=== PATIENT | female | born 1935 | race Caucasian/White ===

== ENCOUNTER → 2016-12-19 | Outpatient (CLI) | payer OTHER ==
[~2016-12-19] MED LIST: ADVIN50/60 INH; ADVIN50050 INH; ASPEC81 PO; ASPI81TA28 PO; LEVO100T7 PO; LEVO100T84 PO; METO50TA7 PO; SIMV40TA2 PO; TAMO20TA9 PO; VNTHFA/IN INH
[2016-12-19 09:26] LABS: BLOOD UREA NITROGEN 15 mg/dl (7-18); BUN/CREATININE RATIO 18.2 (10-20); CARBON DIOXIDE 25 mmol/L (21-32); CHLORIDE 107 mmol/L (98-107); CREATININE 0.84 mg/dl (0.60-1.20); GLUCOSE 86 mg/dl (70-99); POTASSIUM 4.1 mmol/L (3.5-5.1); SODIUM 140 mmol/L (136-145)
[2016-12-19 09:32] LABS: CALCIUM 8.2 mg/dl (8.5-10.1)
== END | disposition home or self-care (01) ==
LOC: C.LABVPSUW 09:01
PROVIDERS: ATTEND Internal Medicine Critical Care Medicine
DX: E03.9 Hypothyroidism, unspecified (principal); I10 Essential (primary) hypertension

== ENCOUNTER → 2017-02-16 | Outpatient (CLI) | payer OTHER ==
[~2017-02-16] MED LIST changes: +TAMO20TA47 PO; -TAMO20TA9 PO
[2017-02-16 11:14] LABS: BLOOD UREA NITROGEN 26 mg/dl (7-18); BUN/CREATININE RATIO 21.8 (10-20); CALCIUM 8.9 mg/dl (8.5-10.1); CARBON DIOXIDE 28 mmol/L (21-32); CHLORIDE 101 mmol/L (98-107); GLUCOSE 91 mg/dl (70-99); SODIUM 135 mmol/L (136-145)
== END | disposition home or self-care (01) ==
LOC: C.LABVPSUW 10:36
PROVIDERS: ATTEND Internal Medicine Critical Care Medicine
DX: E87.6 Hypokalemia (principal)

== ENCOUNTER 2017-02-17 13:22 | Emergency (ER) | payer OTHER ==
[~2017-02-17] VITALS: Ht 162.6 cm; Wt 70.9 kg
[~2017-02-17 13:22] MED LIST changes: -ADVIN50/60 INH; -ASPI81TA28 PO; -LEVO100T7 PO; -VNTHFA/IN INH
[2017-02-17 13:31] VITALS: TEMP 36.7; Ht 162.6 cm; Wt 70.9 kg
[2017-02-17 13:37] VITALS: O2SAT 97
[2017-02-17 14:03] LABS: BASO % 1.1 %; BASO ABS # 0.06 K/uL (0-0.2); COMPLETE YES; EOS % 6.6 %; HEMATOCRIT 39.9 % (37-47); IG% 0.2 %; LYMPH % 23.9 %; LYMPH ABS # 1.34 K/uL (1.2-3.4); MEAN CELL VOLUME 84.7 fL (80-100); MEAN CORPUSCULAR HEMOGLOBIN 29.1 pg (25-34); MEAN CORPUSCULAR HGB CONC 34.3 g/dl (32-36); MEAN PLATELET VOLUME 10.4 fL (7.4-10.4); MONO % 12.3 %; NEUT % 55.9 %; PLATELET COUNT 164 K/uL (130-400); RED BLOOD COUNT 4.71 M/uL (4.2-5.4); WHITE BLOOD COUNT 5.61 K/uL (4.8-10.8)
--- NOTE | 2017-02-17 14:12 | EMERGENCY ROOM VISIT NOTE ---
History First contact with patient: 14:08 Chief Complaint: SYNCOPE (NEAR SYNCOPE) Stated Complaint: SYNCOPE (SINGLE EPISODE) Nursing Triage Summary: patient arrived by ambulance bls after a near syncopal episode while walking at the [facility], per ems patient became pale, diaphoretic and felt dizzy. Patient was assisted to sit on the ground. Patient started new blood pressure medication a couple weeks ago and since that time states this has happened twice. Patient has no complaints on time of arrival. Denies chest pain, shortness of breath also denies cardiac history. History of Present Illness The patient is a 81 year old female who presents to the Emergency Room with complaints of syncope Walking around [facility] when she felt acutely fatigued, and needed to sit down in the shade. Granddaughter claims she was swaying while sitting. When patient went to stand, she states her knees buckled, and she went to sit down on her behind. Unsure if she had a short duration of LOC but denies head trauma on fall. Denies feeling dizzy or lightheaded, SOB, CP, or palpitations. Does state significant flushing and diaphoresis just being outdoors in the sun, despite sun protection. Similar, but milder episode the week before while outdoors. Patient beleives herself to have adequate PO fluid intake, but admits to feeling kind of "woozy" since starting her new diuretic - ?HCTz. Today drank 1 glass of metamusil, 1 cup of coffee and a glass of water before giong outdoors. No recent URTI, no abdominal pain, n/v diarrhea No headaches, no vision changes. No UTI sx. Scheduled for outpatient echo tomorrow Review of Systems See HPI for pertinent positives and negatives. A total of ten systems were reviewed and were otherwise negative. Past Medical/Surgical History Medical Problems: (1) Breast cancer Social History Smoking Status: Never Smoker Smokeless Tobacco Use: No Alcohol Use: occasionally Drug Use: none Housing Status: assisted living ([facility]) Occupation Status: retired Current/Historical Medications Scheduled Albuterol Hfa (Ventolin Hfa), 2 PUFFS INH Q4H Aspirin (Aspirin Ec), 81 MG PO DAILY Fluticasone Prop/Salmeterol (Advair Diskus 500/50 60 Dose), 1 PUFF INH BID Levothyroxine Sodium (Levothyroxine Sodium), 100 MCG PO DAILY Metoprolol Succ (Toprol Xl) (Toprol-Xl), 50 MG PO DAILY Simvastatin (Zocor), 40 MG PO QPM Physical Exam Vital Signs Date Time Temp Pulse Resp B/P (MAP) Pulse Ox O2 Delivery O2 Flow Rate FiO2 02/17/17 16:47 59 20 134/73 99 02/17/17 16:47 59 20 134/73 99 Room Air 02/17/17 15:09 62 20 168/89 98 Room Air 02/17/17 14:06 64 02/17/17 13:37 68 100/81 67 108/66 74 104/69 02/17/17 13:37 97 Room Air 02/17/17 13:31 36.7 70 20 100/81 96 Room Air Physical Exam GENERAL: Alert, well appearing, thin, sitting in bed, no acute distress, non- toxic HEAD: NC/AT. No sinus tenderness. EYES: PERRL, EOMI, normal conjunctiva OROPHARYNX: no exudate, no erythema, lips, buccal mucosa, and tongue normal and mucous membranes are dry NECK: Supple, no nuchal rigidity, no adenopathy, non-tender LUNGS: Clear to auscultation. Normal chest wall mechanics, good air entry. No crepitations, crackles, or wheezes HEART: S1 and S2 normal, significant systolic murmur in aortic region ABDOMEN: abdomen soft, non-tender, normo-active bowel sounds, no masses, no rebound or guarding. BACK: Back is symmetrical on inspection, no deformities, no midline tenderness, no CVA tenderness. SKIN: Warm, pink, dry. No erythema, rashes, or bruising. EXTREMITIES: Grossly normal. No pitting edema. Calves non tender. Strength 5/5 bilaterally. NEURO: Alert, Ox3. No focal deficits. Normal sensorium, cranial nerves II-XII grossly intact, normal speech. PSYCH: Mood and affect appropriate. Medical Decision & Procedures ER Provider Diagnostic Interpretation: CHEST ONE VIEW PORTABLE CLINICAL HISTORY: near syncope COMPARISON STUDY: 11/24/2005 FINDINGS: The cardiac and mediastinal contours are normal. There is no evidence of focal pulmonary consolidation. There is no evidence of failure. No pleural effusions are visualized.[ There are postsurgical changes within the right shoulder. IMPRESSION: No active disease in the chest. Laboratory Results 02/17/17 13:45 Red Blood Count 4.71, Mean Corpuscular Volume 84.7, Mean Corpuscular Hemoglobin 29.1, Mean Corpuscular Hemoglobin Concent 34.3, Mean Platelet Volume 10.4, Neutrophils (%) (Auto) 55.9, Lymphocytes (%) (Auto) 23.9, Monocytes (%) (Auto) 12.3, Eosinophils (%) (Auto) 6.6, Basophils (%) (Auto) 1.1, Neutrophils # (Auto ) 3.14, Lymphocytes # (Auto) 1.34, Monocytes # (Auto) 0.69, Eosinophils # (Auto ) 0.37, Basophils # (Auto) 0.06 02/17/17 13:45 Test 02/17/17 13:45 02/17/17 14:00 02/17/17 14:28 02/17/17 15:10 White Blood Count 5.61 K/uL (4.8-10.8) Red Blood Count 4.71 M/uL (4.2-5.4) Hemoglobin 13.7 g/dL (12.0-16.0) Hematocrit 39.9 % (37-47) Mean Corpuscular Volume 84.7 fL (80-100) Mean Corpuscular Hemoglobin 29.1 pg (25-34) Mean Corpuscular Hemoglobin Concent 34.3 g/dl (32-36) Platelet Count 164 K/uL (130-400) Mean Platelet Volume 10.4 fL (7.4-10.4) Neutrophils (%) (Auto) 55.9 % Lymphocytes (%) (Auto) 23.9 % Monocytes (%) (Auto) 12.3 % Eosinophils (%) (Auto) 6.6 % Basophils (%) (Auto) 1.1 % Neutrophils # (Auto) 3.14 K/uL (1.4-6.5) Lymphocytes # (Auto) 1.34 K/uL (1.2-3.4) Monocytes # (Auto) 0.69 K/uL (0.11-0.59) Eosinophils # (Auto) 0.37 K/uL (0-0.5) Basophils # (Auto) 0.06 K/uL (0-0.2) RDW Standard Deviation 42.1 fL (36.4-46.3) RDW Coefficient of Variation 13.7 % (11.5-14.5) Immature Granulocyte % (Auto) 0.2 % Immature Granulocyte # (Auto) 0.01 K/uL (0.00-0.02) Anion Gap 9.0 mmol/L (3-11) Est Creatinine Clear Calc Drug Dose 37.4 ml/min Estimated GFR () 53.8 Estimated GFR (Non- 46.4 BUN/Creatinine Ratio 20.7 (10-20) Calcium Level 9.0 mg/dl (8.5-10.1) Total Bilirubin 0.7 mg/dl (0.2-1) Aspartate Amino Transf (AST/SGOT) 24 U/L (15-37) Alanine Aminotransferase (ALT/SGPT) 22 U/L (12-78) Alkaline Phosphatase 67 U/L (45-117) Total Creatine Kinase 83 U/L (26-192) Creatine Kinase MB 1.1 ng/ml (0.5-3.6) Creatine Kinase MB Ratio 1.3 (0-3.0) Total Protein 7.0 gm/dl (6.4-8.2) Albumin 3.5 gm/dl (3.4-5.0) Globulin 3.5 gm/dl (2.5-4.0) Albumin/Globulin Ratio 1.0 (0.9-2) Thyroid Stimulating Hormone (TSH) 1.170 uIu/ml (0.300-4.500) Bedside Troponin I < 0.030 ng/ml (0-0.045) Bedside Glucose 101 mg/dl (70-90) Urine Color YELLOW Urine Appearance CLEAR (CLEAR) Urine pH 7.5 (4.5-7.5) Urine Specific [place] 1.010 (1.000-1.030) Urine Protein NEG (NEG) Urine Glucose (UA) NEG (NEG) Urine Ketones NEG (NEG) Urine Occult Blood TRACE (NEG) Urine Nitrite NEG (NEG) Urine Bilirubin NEG (NEG) Urine Urobilinogen NEG (NEG) Urine Leukocyte Esterase TRACE (NEG) Urine WBC (Auto) 1-5 /hpf (0-5) Urine RBC (Auto) 0-4 /hpf (0-4) Urine Hyaline Casts (Auto) 1-5 /lpf (0-5) Urine Epithelial Cells (Auto) 0-5 /lpf (0-5) Urine Bacteria (Auto) NEG (NEG) Medications Administered Medications (Trade) Dose Ordered Sig/Vanessa Route Start Time Stop Time Status Last Admin Dose Admin Sodium Chloride 500 ml @ 500 mls/hr Q1H IV 02/17/17 14:45 02/17/17 17:04 DC 02/17/17 15:45 500 MLS/HR ECG Indication: syncope Rate (beats per minute): 61 Rhythm: normal sinus Findings: LBBB Change: Normal sinus rhythm Left bundle branch block Abnormal ECG When compared with ECG of 04-AUG-2007 12:05, Left bundle branch block is now Present ED Course 1420 The patient was evaluated in room B5. A complete history and physical exam was performed. Labs and diagnostics were ordered 1445 IVF bolus ordered 1647: Orthostatic positive. 1530 Reassessed. IVF running, half done. Patient well. Medical Decision Prior records/ancillary studies reviewed. Triage Nursing notes reviewed. Additional history obtained from patient, daughter, granddaughter. The patient's history was concerning for syncope. Differential diagnosis: Etiologies such as vasovagal event, infection, hypoglycemia, electrolyte abnormalities, cardiac sources, intracerebral event, toxicologic, neurologic, as well as others were entertained. Physical examination: Significant only for aortic systolic murmur ER treatment provided: IV hydration with normal saline On reassessment the patient felt better. Diagnostics interpretation by me: ECG: NSR The labs revealed normal CBC, hyponatremia, elevated BUN:Cr ratio, negative trop , normal TSH, glucose 120 Imaging studies: No active disease in the chest Consultation: This episode appears to be consistent with dehydration exacerbated by the initiation of new diuretic and underlying valvular dysfunction. By the evaluation outlined above emergent etiologies such as infection, hypoglycemia, electrolyte abnormalities, cardiac sources, intracerebral event, toxicologic, neurologic,as well as others were deemed relatively unlikely. The patient informed about the findings as listed above. All questions were answered and family pleased with the treatment. Return instructions were outlined and the patient was discharged in stable condition. Outpatient prescription management: Hold new medication until further discussion with PCP. Attend appointment for echo tomorrow as previously scheduled. Referral: The patient was referred back to their primary care physician for follow-up in 2 to 3 days for a recheck of the current condition. Impression Primary Impression: Syncope due to orthostatic hypotension Additional Impression: Murmur, cardiac Departure Information Dispostion Home / Self-Care Condition GOOD Referrals [facility] (PCP) Patient Instructions My [facility] Resident Tracking Resident Involvement: Resident Care Provided Care Provided: Adult ED Problem Qualifiers
[2017-02-17 14:14] LABS: BUN/CREATININE RATIO 20.7 (10-20); CREATININE 1.1 mg/dl (0.60-1.20); POTASSIUM 4.1 mmol/L (3.5-5.1)
--- NOTE | 2017-02-17 14:15 | DIAGNOSTIC IMAGING REPORT ---
CHEST ONE VIEW PORTABLE CLINICAL HISTORY: near syncope COMPARISON STUDY: 11/24/2005 FINDINGS: The cardiac and mediastinal contours are normal. There is no evidence of focal pulmonary consolidation. There is no evidence of failure. No pleural effusions are visualized.[ There are postsurgical changes within the right shoulder. IMPRESSION: No active disease in the chest. Electronically signed by: Long Whitaker M.D. 02/17/2017 2:13 PM Dictated Date/Time: 02/17/2017 2:13 PM
[2017-02-17 14:25] LABS: CKMB/CK RATIO 1.3 (0-3.0); THYROID STIMULATING HORMONE 1.17 uIu/ml (0.300-4.500)
[2017-02-17] MEDS ORDERED: ADVIN50/60 INH (14:27)
[2017-02-17] MEDS ORDERED: ASPI81TA28 PO (14:27)
[2017-02-17] MEDS ORDERED: VNTHFA/IN INH (14:27)
[2017-02-17] MEDS ORDERED: LEVO100T7 PO (14:27)
[2017-02-17] MEDS: SODIUM CHLORIDE 0.9% 500ML 500 ML IV SCH ×2 (15:07→15:45)
[2017-02-17 15:36] LABS: URINE APPEARANCE CLEAR (CLEAR); URINE BILIRUBIN NEG (NEG); URINE COLOR YELLOW; URINE EPITHELIAL CELL AUTO 0-5 /lpf (0-5); URINE NITRITE NEG (NEG); URINE PH 7.5 (4.5-7.5); UROBILINOGEN NEG (NEG); ZZUR CULT IF INDIC CLEAN CATCH NO
[2017-02-17 15:38] LABS: MANUAL MICROSCOPIC REQUIRED? NO; REVIEW REQ? NO
--- NOTE | 2017-02-17 15:55 | EMERGENCY ROOM VISIT NOTE ---
History Report prepared by Mc: Jose M Montoya Under the Supervision of: Dr. Rodrick Stack M.D. First contact with patient: 14:08 Chief Complaint: SYNCOPE (NEAR SYNCOPE) Stated Complaint: SYNCOPE (SINGLE EPISODE) Nursing Triage Summary: patient arrived by ambulance bls after a near syncopal episode while walking at the [facility], per ems patient became pale, diaphoretic and felt dizzy. Patient was assisted to sit on the ground. Patient started new blood pressure medication a couple weeks ago and since that time states this has happened twice. Patient has no complaints on time of arrival. Denies chest pain, shortness of breath also denies cardiac history. History of Present Illness The patient is a 81 year old female who presents to the Emergency Room with complaints of a near-syncopal episode. Patient arrived by ambulance bls after a near syncopal episode while walking at the [facility], per ems patient became pale, diaphoretic and felt dizzy. Patient was assisted to sit on the ground. Patient started new blood pressure medication a couple weeks ago and since that time states this has happened twice. Patient has no complaints on time of arrival. Denies chest pain, shortness of breath also denies cardiac history. Source of History: patient Onset: Shortly prior to arrival Quality: other (near-syncope) Timing: other (episode) Associated Symptoms: + diaphoresis, No chest pain, No SOB Note: Additional symptoms: Pale appearance, dizziness. Review of Systems See HPI for pertinent positives & negatives. A total of 10 systems reviewed and were otherwise negative. Past Medical & Surgical Medical Problems: (1) Breast cancer Family History No pertinent family history stated. Social History Smoking Status: Never Smoker Smokeless Tobacco Use: No Alcohol Use: occasionally Drug Use: none Housing Status: assisted living ([facility]) Occupation Status: retired Current/Historical Medications Scheduled Albuterol Hfa (Ventolin Hfa), 2 PUFFS INH Q4H Aspirin (Aspirin Ec), 81 MG PO DAILY Fluticasone Prop/Salmeterol (Advair Diskus 500/50 60 Dose), 1 PUFF INH BID Levothyroxine Sodium (Levothyroxine Sodium), 100 MCG PO DAILY Metoprolol Succ (Toprol Xl) (Toprol-Xl), 50 MG PO DAILY Simvastatin (Zocor), 40 MG PO QPM Allergies Coded Allergies: Morphine (Unverified Allergy, Mild, RASH, 02/17/17) Clavulanic Acid (Unverified Allergy, Unknown, 02/17/17) Penicillins (Unverified Allergy, Unknown, 02/17/17) Sulfa Antibiotics (Verified Allergy, Unknown, ., 02/17/17) Uncoded Allergies: BETALACTAMASEIN (Allergy, Unknown, 08/17/09) Physical Exam Vital Signs Date Time Temp Pulse Resp B/P (MAP) Pulse Ox O2 Delivery O2 Flow Rate FiO2 02/17/17 16:47 59 20 134/73 99 02/17/17 16:47 59 20 134/73 99 Room Air 02/17/17 15:09 62 20 168/89 98 Room Air 02/17/17 14:06 64 02/17/17 13:37 68 100/81 67 108/66 74 104/69 02/17/17 13:37 97 Room Air 02/17/17 13:31 36.7 70 20 100/81 96 Room Air Physical Exam GENERAL: Patient is a healthy-appearing well-nourished female HEAD: Normocephalic atraumatic EYES: Ocular movements intact pupils equal and react to light OROPHARYNX mucous membranes are moist no exudates present no erythema or edema present NECK: Supple no nuchal rigidity CHEST: Good equal expansion LUNGS: Clear and equal to auscultation CARDIAC: Normal S1 and S2 ABDOMEN: Soft nontender no guarding BACK: No CVA tenderness EXTREMITIES: No pain upon palpation normal muscle strength in all groups no clubbing cyanosis or edema NEURO: Patient is following commands and answering questions appropriately. Alert and oriented x3 Cranial Nerves 2-12 grossly intact Medical Decision & Procedures ER Provider Diagnostic Interpretation: X-ray results as stated below per interpretation by me and the radiologist: CHEST ONE VIEW PORTABLE FINDINGS: The cardiac and mediastinal contours are normal. There is no evidence of focal pulmonary consolidation. There is no evidence of failure. No pleural effusions are visualized.[ There are postsurgical changes within the right shoulder. IMPRESSION: No active disease in the chest. Laboratory Results 02/17/17 13:45 Red Blood Count 4.71, Mean Corpuscular Volume 84.7, Mean Corpuscular Hemoglobin 29.1, Mean Corpuscular Hemoglobin Concent 34.3, Mean Platelet Volume 10.4, Neutrophils (%) (Auto) 55.9, Lymphocytes (%) (Auto) 23.9, Monocytes (%) (Auto) 12.3, Eosinophils (%) (Auto) 6.6, Basophils (%) (Auto) 1.1, Neutrophils # (Auto ) 3.14, Lymphocytes # (Auto) 1.34, Monocytes # (Auto) 0.69, Eosinophils # (Auto ) 0.37, Basophils # (Auto) 0.06 02/17/17 13:45 Test 02/17/17 13:45 02/17/17 14:00 02/17/17 14:28 02/17/17 15:10 White Blood Count 5.61 K/uL (4.8-10.8) Red Blood Count 4.71 M/uL (4.2-5.4) Hemoglobin 13.7 g/dL (12.0-16.0) Hematocrit 39.9 % (37-47) Mean Corpuscular Volume 84.7 fL (80-100) Mean Corpuscular Hemoglobin 29.1 pg (25-34) Mean Corpuscular Hemoglobin Concent 34.3 g/dl (32-36) Platelet Count 164 K/uL (130-400) Mean Platelet Volume 10.4 fL (7.4-10.4) Neutrophils (%) (Auto) 55.9 % Lymphocytes (%) (Auto) 23.9 % Monocytes (%) (Auto) 12.3 % Eosinophils (%) (Auto) 6.6 % Basophils (%) (Auto) 1.1 % Neutrophils # (Auto) 3.14 K/uL (1.4-6.5) Lymphocytes # (Auto) 1.34 K/uL (1.2-3.4) Monocytes # (Auto) 0.69 K/uL (0.11-0.59) Eosinophils # (Auto) 0.37 K/uL (0-0.5) Basophils # (Auto) 0.06 K/uL (0-0.2) RDW Standard Deviation 42.1 fL (36.4-46.3) RDW Coefficient of Variation 13.7 % (11.5-14.5) Immature Granulocyte % (Auto) 0.2 % Immature Granulocyte # (Auto) 0.01 K/uL (0.00-0.02) Anion Gap 9.0 mmol/L (3-11) Est Creatinine Clear Calc Drug Dose 37.4 ml/min Estimated GFR () 53.8 Estimated GFR (Non- 46.4 BUN/Creatinine Ratio 20.7 (10-20) Calcium Level 9.0 mg/dl (8.5-10.1) Total Bilirubin 0.7 mg/dl (0.2-1) Aspartate Amino Transf (AST/SGOT) 24 U/L (15-37) Alanine Aminotransferase (ALT/SGPT) 22 U/L (12-78) Alkaline Phosphatase 67 U/L (45-117) Total Creatine Kinase 83 U/L (26-192) Creatine Kinase MB 1.1 ng/ml (0.5-3.6) Creatine Kinase MB Ratio 1.3 (0-3.0) Total Protein 7.0 gm/dl (6.4-8.2) Albumin 3.5 gm/dl (3.4-5.0) Globulin 3.5 gm/dl (2.5-4.0) Albumin/Globulin Ratio 1.0 (0.9-2) Thyroid Stimulating Hormone (TSH) 1.170 uIu/ml (0.300-4.500) Bedside Troponin I < 0.030 ng/ml (0-0.045) Bedside Glucose 101 mg/dl (70-90) Urine Color YELLOW Urine Appearance CLEAR (CLEAR) Urine pH 7.5 (4.5-7.5) Urine Specific [place] 1.010 (1.000-1.030) Urine Protein NEG (NEG) Urine Glucose (UA) NEG (NEG) Urine Ketones NEG (NEG) Urine Occult Blood TRACE (NEG) Urine Nitrite NEG (NEG) Urine Bilirubin NEG (NEG) Urine Urobilinogen NEG (NEG) Urine Leukocyte Esterase TRACE (NEG) Urine WBC (Auto) 1-5 /hpf (0-5) Urine RBC (Auto) 0-4 /hpf (0-4) Urine Hyaline Casts (Auto) 1-5 /lpf (0-5) Urine Epithelial Cells (Auto) 0-5 /lpf (0-5) Urine Bacteria (Auto) NEG (NEG) Labs reviewed by ED physician. Medications Administered Medications (Trade) Dose Ordered Sig/Vanessa Route Start Time Stop Time Status Last Admin Dose Admin Sodium Chloride 500 ml @ 500 mls/hr Q1H IV 02/17/17 14:45 02/17/17 17:04 DC 02/17/17 15:45 500 MLS/HR ECG Indication: syncope (near) Rate (beats per minute): 61 Rhythm: normal sinus Findings: LBBB, no acute ischemic change, no ectopy ED Course 1408: Past medical records reviewed. The patient was evaluated in room B6. A complete history and physical examination was performed. 1445: Ordered Sodium Chloride 500 ml @ 500 mls/hr IV. Medical Decision Differential diagnosis: Etiologies such as vasovagal event, infection, hypoglycemia, electrolyte abnormalities, cardiac sources, intracerebral event, toxicologic, neurologic, as well as others were entertained. Resident Physician Supervision Note: I interviewed and examined the patient. Discussed with Dr. Gamez and agree with findings and plan as documented in the note. Documented By: Rodrick Stack 81-year-old female that presents with a vasovagal episode after walking outside in the heat. The patient was recently placed on a medication and also has a loud systolic murmur. The patient is scheduled for an echocardiogram tomorrow. I do believe she is well enough to be discharged home however I stressed the need to follow-up with her primary care doctor over the medication she had recently been placed on. Patient was in agreement with the treatment plan. Impression Primary Impression: Syncope Additional Impression: Dehydration Scribe Attestation The scribe's documentation has been prepared under my direction and personally reviewed by me in its entirety. I confirm that the note above accurately reflects all work, treatment, procedures, and medical decision making performed by me. Departure Information Dispostion Home / Self-Care Referrals [facility] (PCP) Forms HOME CARE DOCUMENTATION FORM, IMPORTANT VISIT INFORMATION Patient Instructions My [facility] Additional Instructions You were seen in the ED today for an acute episode of syncope (fainting). Your vitals were noted to be low on admission, with confirmed othostatic vitals, although blood pressure improved with IV fluid. Lab work done was all within normal limits - CBC, LFT, cardiac enzymes, TSH. Your kidney tests showed evidence of low sodium and dehydration. At discharge, we would recommend holding your new blood pressure medication until further discussion with Dr. Figueroa. Additionally, we recommend you staying more hydrated, particularly when going outdoors. Coffee is not an ideal drink for hydration. In addition to a murmur heard on your exam, you had an EKG which shows a new LBBB, which was not there in 2007. This also warrants discussion with Dr. Figueroa. Upon discharge, we urge you to follow up with your PCP with regards to your blood pressure and medication. And we advise you to complete your scheduled echo tomorrow. You have been examined and treated today on an emergency basis only. This is not a substitute for, or an effort to provide, complete comprehensive medical care. It is impossible to recognize and treat all injuries or illnesses in a single emergency department visit. It is therefore important that you make a follow up with your physician for close monitoring. We urge you to return to ER if similar symptoms return or if you develop worsening or persistent dizziness, vomiting, headache, fevers, chest pains, difficulty breathing, black or bloody stools, slurred speech, numbness, weakness , visual changes, or as needed. Problem Qualifiers Primary Impression: Syncope Syncope type: vasovagal syncope Qualified Codes: R55 - Syncope and collapse
[2017-02-17 16:47] VITALS: BP 134/73; PULSE 59; O2SAT 99
== END 2017-02-17 16:49 | disposition home or self-care (01) ==
LOC: EDBD 13:22 → C.EDB 13:23
DX: R55 Syncope and collapse (principal); E86.0 Dehydration; Z85.3 Personal history of malignant neoplasm of breast; Z79.82 Long term (current) use of aspirin

== ENCOUNTER → 2017-02-18 | Outpatient (CLI) | payer OTHER ==
[~2017-02-18] MED LIST changes: +ADVIN50/60 INH; +ASPI81TA28 PO; +ATROPINE SULFATE 0.1 MG/ML 5ML SYR ONE; +DOBUTamine HCL 12.5 MG/ML 20 ML VIAL ONE; +LEVO100T7 PO; +METOPROLOL TARTRATE 1 MG/ML VIAL ONE; +VNTHFA/IN INH
--- NOTE | 2017-02-18 14:56 | DOBUTAMINE ECHO ---
*NOTICE TO RECEIVING LIBERTARIAN AGENCY This information is strictly Confidential and protected under [place] law. [place] law prohibits you from making any further disclosure of this information unless further disclosure is expressly permitted by the written consent of the person to whom it pertains or is authorized by law. A general authorization for the release of medical or other information is not sufficient for this purpose. Hospital accepts no responsibility if the information is made available to any other person, INCLUDING THE PATIENT. Interpretation Summary * Name: SADIQ CASTELLANOS Study Date: 02/18/2017 09:38 AM BP: 103/67 mmHg * Patient Location: [facility] HR: 66 * : 1935 (M/d/yyyy) Gender: Female Height: 64 in * Age: 81 yrs Ethnicity: CA Weight: 153 lb * Ordering Physician: Des Figueroa * Referring Physician: Des Figueroa * Performed By: Rob Alejandra RCS * * Reason For Study: Chest pain * BSA: 1.7 m2 * -- Conclusions -- * Left ventricular systolic function is normal. * Grade I diastolic dysfunction, (abnormal relaxation pattern). * Right ventricular systolic pressure is normal. * Normal dobutamine echocardiogram without evidence of inducible ischemia Procedure Details * DOBUTAMINE ECHO, CPT#23321 Left Ventricular Findings with Stress * Normal dobutamine echocardiogram without evidence of inducible ischemia Left Ventricle * The left ventricle is grossly normal size. * There is normal left ventricular wall thickness. * Ejection Fraction = 60-65%. * Left ventricular systolic function is normal. * Grade I diastolic dysfunction, (abnormal relaxation pattern). * The left ventricular wall motion is normal at rest. Right Ventricle * The right ventricle is normal in size and function. Mitral Valve * The mitral valve is grossly normal. * Significant mitral regurgitation is absent. Tricuspid Valve * The tricuspid valve is not well visualized, but is grossly normal. * There is trace tricuspid regurgitation. * Right ventricular systolic pressure is normal. Aortic Valve * Aortic valve sclerosis mild, without significant aortic valvular stenosis. * There is no significant aortic regurgitation. Pericardium * There is no pericardial effusion. Stress Parameters * Left bundle branch block * Stress ECG: No ST changes. No arrhythmias. * The stress portion of this study was personally supervised by the undersigned interpreting physician. * Rest heart rate was '62' BPM. * Rest blood pressure was '103/67' * Maximum heart rate achieved was 121 bpm. * Maximum heart rate was 88 % of maximum age-predicted heart rate. * Maximum blood pressure was '138/73' * Maximum Dobutamine infusion rate was '50' mcg/kg/min. * A total of 0.25 mg of intravenous Atropine was used to supplement Dobutamine for heart rate response. * Dobutamine infusion was terminated due to achieving target heart rate * A total of 2.5 mg of IV Metoprolol was administered to reverse Dobutamine-induced tachycardia. * The patient did not exhibit any symptoms during drug infusion. Left Ventricular Findings with Stress * Normal baseline LV function Normal augmentation with dobutamine Some cavity obliteration at peak infusion whcih will limit the sensitivity, but no inducible wall motion abnormalities. No symptoms reported. MMode 2D Measurements and Calculations IVSd 1.1 cm LVIDd 4.3 cm LVIDs 2.7 cm LVPWd 1.1 cm IVS/LVPW 1.1 FS 37.0 % EDV(Teich) 82.0 ml ESV(Teich) 26.8 ml EF(Teich) 67.3 % EDV(cubed) 78.2 ml ESV(cubed) 19.5 ml EF(cubed) 75.0 % LV mass(C)d 161.6 grams LV mass(C)dI 92.6 grams/m\S\2 SV(Teich) 55.2 ml SI(Teich) 31.6 ml/m\S\2 SV(cubed) 58.7 ml SI(cubed) 33.6 ml/m\S\2 LVAd ap4 31.5 cm\S\2 LVLd ap4 8.6 cm EDV(MOD-sp4) 92.2 ml EDV(sp4-el) 97.5 ml LVAs ap4 11.8 cm\S\2 LVLs ap4 6.0 cm ESV(MOD-sp4) 19.7 ml ESV(sp4-el) 19.8 ml EF(MOD-sp4) 78.6 % EF(sp4-el) 79.7 % LVAd ap2 32.4 cm\S\2 LVLd ap2 9.0 cm EDV(MOD-sp2) 96.6 ml EDV(sp2-el) 99.0 ml LVAs ap2 16.2 cm\S\2 LVLs ap2 6.4 cm ESV(MOD-sp2) 34.3 ml ESV(sp2-el) 34.8 ml EF(MOD-sp2) 64.5 % EF(sp2-el) 64.8 % LVLd %diff 4.5 % EDV(MOD-bp) 96.4 ml LVLs %diff 6.8 % ESV(MOD-bp) 27.1 ml EF(MOD-bp) 71.9 % SV(MOD-sp4) 72.5 ml SI(MOD-sp4) 41.5 ml/m\S\2 SV(MOD-sp2) 62.3 ml SI(MOD-sp2) 35.7 ml/m\S\2 SV(MOD-bp) 69.3 ml SI(MOD-bp) 39.7 ml/m\S\2 SV(sp4-el) 77.7 ml SI(sp4-el) 44.5 ml/m\S\2 SV(sp2-el) 64.2 ml SI(sp2-el) 36.8 ml/m\S\2 Doppler Measurements and Calculations MV E max chelsea 44.8 cm/sec MV A max che[place]sea 79.3 cm/sec MV E/A 0.56 MV dec time 0.25 sec Ao V2 max 162.4 cm/sec Ao max PG 10.6 mmHg Ao max PG (full) 7.7 mmHg AI max che[place] 397.2 cm/sec AI max PG 63.1 mmHg AI dec slope 160.5 cm/sec\S\2 AI P1/2t 724.7 msec LV V1 max PG 2.8 mmHg LV V1 max 84.0 cm/sec TR max che[place] 243.3 cm/sec
== END | disposition home or self-care (01) ==
LOC: C.CPL 09:21
PROVIDERS: ATTEND Internal Medicine Critical Care Medicine
DX: I99.9 Unspecified disorder of circulatory system (principal)

== ENCOUNTER → 2018-03-04 | Outpatient (CLI) | payer OTHER ==
[~2018-03-04] MED LIST changes: -ADVIN50050 INH; -ASPEC81 PO; -ATROPINE SULFATE 0.1 MG/ML 5ML SYR ONE; -DOBUTamine HCL 12.5 MG/ML 20 ML VIAL ONE; -LEVO100T84 PO; -METO50TA7 PO; +METO50TA8 PO; -METOPROLOL TARTRATE 1 MG/ML VIAL ONE; -TAMO20TA47 PO
== END | disposition home or self-care (01) ==
LOC: C.LABVPSUW 16:01
PROVIDERS: ATTEND Internal Medicine Critical Care Medicine
DX: N39.0 Urinary tract infection, site not specified (principal)